=== PATIENT | male | born 1990 ===

== ENCOUNTER 2017-03-26 20:50 | Emergency (ER) | payer SELFPAY ==
[2017-03-26 21:02] VITALS: BP 135/75; PULSE 88; TEMP 98.1; O2SAT 97
[2017-03-26] MEDS ORDERED: Albuterol 0.083% Inhal Sol (2.5 mg/3 mL) UD ONE ×2 (21:44→22:21)
[2017-03-26] MEDS: Albuterol 0.083% Inhal Sol (2.5 mg/3 mL) UD INH SCH ×2 (21:45→22:20)
--- NOTE | 2017-03-26 22:57 | C.PDOC ---
History Of Present Illness 27 year old male presents to the ED for evaluation of intermittent dry cough and chest congestion which began 1 week ago. Patient also complains of chest and throat tightness after cough. Patient has history of asthma, but states he had not had any exacerbations for the past 6 years and has not used his inhaler since a long time. Patient denies fever, chills, recent travel, or sick contacts. Time Seen by Provider: 03/26/17 21:13 Chief Complaint (Nursing): Cough, Cold, Congestion History Per: Patient History/Exam Limitations: no limitations Onset/Duration Of Symptoms: Intermittent Episodes (1 week ) Current Symptoms Are (Timing): Still Present Location Of Pain: None Sick Contacts (Context): None Associated Symptoms: Cough. denies: Sputum Ear Symptoms: Bilateral: None Additional History Per: Patient Past Medical History Reviewed: Historical Data, Nursing Documentation, Vital Signs Vital Signs: Last Vital Signs Temp 98.1 F 03/26/17 20:54 Pulse 88 03/26/17 20:54 Resp 20 03/26/17 23:03 BP 135/75 03/26/17 20:54 Pulse Ox 97 03/27/17 05:03 - Medical History PMH: Asthma Surgical History: No Surg Hx Family History: States: Unknown Family Hx - Social History Hx Alcohol Use: No Hx Substance Use: No - Immunization History Hx Tetanus Toxoid Vaccination: No Hx Influenza Vaccination: No Hx Pneumococcal Vaccination: No Review Of Systems Constitutional: Negative for: Fever, Chills ENT: Positive for: Other (chest congestion and tightness ) Respiratory: Positive for: Cough. Negative for: Sputum Physical Exam - Physical Exam Appears: Non-toxic, No Acute Distress Skin: Normal Color, Warm, Dry Head: Atraumatic, Normacephalic Eye(s): bilateral: Normal Inspection Ear(s): Bilateral: Normal Nose: Normal, No Discharge Oral Mucosa: Moist Throat: Normal, No Erythema, No Exudate Neck: Supple Chest: Symmetrical, No Deformity, No Tenderness Cardiovascular: Rhythm Regular, No Murmur Respiratory: Decreased Breath Sounds, No Rales, No Rhonchi, Wheezing (expiratory , right>left ) Extremity: Normal ROM, Capillary Refill (less than 2 seconds) Neurological/Psych: Oriented x3, Normal Speech, Normal Cognition Gait: Steady ED Course And Treatment O2 Sat by Pulse Oximetry: 97 (on RA) Pulse Ox Interpretation: Normal Progress Note: Albuterol INH and Prednisone PO administered. On reassessment, patient is resting comfortably, showing no signs of distress and reports moderate improvement in symptoms. Patient has stable vitals at this time and is stable for discharge. Patient is advised to follow up with his PMD within 1-2 days for further evaluation and/or return to the ED for further evaluation if symptoms return or persist. Disposition Counseled Patient/Family Regarding: Diagnosis, Need For Followup - Disposition Referrals: Non [facility] Provider, [Primary Care Provider] - Disposition: HOME/ ROUTINE Disposition Time: 22:55 Condition: STABLE Additional Instructions: Please follow up with PMD or in clinic Return to ER if worse Prescriptions: Albuterol HFA [Ventolin HFA 90 mcg/actuation (8 g)] 2 puff IH [id number] #1 inhaler predniSONE [Prednisone] 40 mg PO DAILY #8 tab Instructions: Asthma (ED) Forms: [employer] ([place]) - Clinical Impression Clinical Impression: Exacerbation of asthma - 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 - Scribe Statement The provider has reviewed the documentation as recorded by the Scribe (Debra Childs) All medical record entries made by the Scribe were at my direction and personally dictated by me. I have reviewed the chart and agree that the record accurately reflects my personal performance of the history, physical exam, medical decision making, and the department course for this patient. I have also personally directed, reviewed, and agree with the discharge instructions and disposition.
[2017-03-26 23:04] VITALS: RESP 20
== END 2017-03-26 23:03 | disposition home or self-care (01) ==
LOC: C.ER 20:50 → SUPCPDRO 20:50 → C.ER 23:03
DX: J45.901 Unspecified asthma with (acute) exacerbation (principal)

== ENCOUNTER 2017-04-01 14:57 | Emergency (ER) | payer SELFPAY ==
[2017-04-01 15:22] VITALS: BMI 34.3
[2017-04-01 15:25] VITALS: BP 133/79; PULSE 83; RESP 16; TEMP 98; O2SAT 98
--- NOTE | 2017-04-02 09:58 | C.PDOC ---
History Of Present Illness 27 year old male presents to the ED for evaluation after having an allergic reaction with unknown exposure. Patient notes he experienced similar symptoms 3 weeks ago. He denies fever, chills, chest pain, shortness of breath, and recent travel. Chief Complaint (Nursing): Allergic Reaction History Per: Patient History/Exam Limitations: no limitations Onset/Duration Of Symptoms: Hrs Current Symptoms Are (Timing): Still Present Possible Cause: Unknown Associated Symptoms: denies: Chest Pain Additional History Per: Patient Past Medical History Reviewed: Historical Data, Nursing Documentation, Vital Signs Vital Signs: Last Vital Signs Temp 98.0 F 04/01/17 15:22 Pulse 83 04/01/17 15:22 Resp 16 04/01/17 15:22 BP 133/79 04/01/17 15:22 Pulse Ox 98 04/02/17 09:58 - Medical History PMH: Asthma Surgical History: No Surg Hx Family History: States: Unknown Family Hx - Social History Hx Alcohol Use: No Hx Substance Use: No - Immunization History Hx Tetanus Toxoid Vaccination: No Hx Influenza Vaccination: No Hx Pneumococcal Vaccination: No Review Of Systems Constitutional: Negative for: Fever, Chills Cardiovascular: Negative for: Chest Pain Respiratory: Negative for: Cough, Shortness of Breath Skin: Positive for: Other (allergic reaction ) Physical Exam - Physical Exam Appears: Non-toxic, No Acute Distress Skin: Normal Color, Warm, Dry Head: Atraumatic, Normacephalic Eye(s): bilateral: Normal Inspection Ear(s): Bilateral: Normal Nose: Normal, No Discharge Oral Mucosa: Moist Throat: Normal, No Erythema, No Exudate Neck: Supple Chest: Symmetrical, No Deformity, No Tenderness Cardiovascular: Rhythm Regular, No Murmur Respiratory: Normal Breath Sounds, No Rales, No Rhonchi, No Wheezing Extremity: Normal ROM, Capillary Refill (less than 2 seconds ) Neurological/Psych: Oriented x3, Normal Speech, Normal Cognition ED Course And Treatment O2 Sat by Pulse Oximetry: 98 (on RA) Pulse Ox Interpretation: Normal Medical Decision Making Medical Decision Making: Prednisone PO administered. Disposition - Disposition Referrals: [facility], [Non-Staff] - Disposition: HOME/ ROUTINE Disposition Time: 16:00 Condition: GOOD Additional Instructions: Thank you for letting us take care of you today. The emergency medical care you received today was directed at your acute symptoms. If you were prescribed any medication, please fill it and take as directed. It may take several days for your symptoms to resolve. Return to the Emergency Department if your symptoms worsen, do not improve, or if you have any other problems. Please contact your doctor or call one of the physicians/clinics you have been referred to that are listed on the Patient Visit Information form that is included in your discharge packet. Bring any paperwork you were given at discharge with you along with any medications you are taking to your follow up visit. Our treatment cannot replace ongoing medical care by a primary care provider (PCP) outside of the emergency department. Thank you for allowing the [facility] team to be part of your care today. Follow up with your doctor in 3-4 days for re-evaluation and further management. Prescriptions: predniSONE [Prednisone] 40 mg PO DAILY #10 tab Instructions: General Allergic Reaction (ED) Forms: [employer] ([place]) - Clinical Impression Clinical Impression: Allergic contact dermatitis - Scribe Statement The provider has reviewed the documentation as recorded by the Scribe (Debra Childs) Provider Attestation: All medical record entries made by the Scribe were at my direction and personally dictated by me. I have reviewed the chart and agree that the record accurately reflects my personal performance of the history, physical exam, medical decision making, and the department course for this patient. I have also personally directed, reviewed, and agree with the discharge instructions and disposition.
== END 2017-04-01 16:27 | disposition home or self-care (01) ==
LOC: C.ER 14:57
DX: L23.9 Allergic contact dermatitis, unspecified cause (principal)